=== PATIENT | female | born 1980 | race Caucasian/White ===

== ENCOUNTER 2017-01-05 13:00 | Emergency (ER) | payer OTHER ==
[2017-01-05 13:49] LABS: APPEARANCE,URINE Clear (CLEAR); COLOR,URINE Yellow (YELLOW); OCCULT BLOOD,URINE 1+ (NEGATIVE); PH URINE 6.5 (5.0 - 8.0)
[2017-01-05 13:56] LABS: BASOPHILS % 0.8 (0.0-1.5); EOSINOPHILS % 2.6 % (0.0-6.8); MEAN CORPUSCULAR HEMOGLOBIN 31.8 pg (28.0-34.0); MEAN CORPUSCULAR VOLUME 92.5 fl (80.0-100.0); MONOCYTES % 4.7 % (0.0-11.0); NEUTROPHILS # 5.8 # k/uL (1.4-7.7)
[2017-01-05 14:00] LABS: AMORPHOUS SEDIMENT,UR FEW (NEGATIVE); eGFR (African) > 60; eGFR (Non-African) > 60
[2017-01-05] MEDS ORDERED: ONDANSETRON HCL/PF 4 MG/ 2ML VIAL ONE (14:07)
[2017-01-05] MEDS: 0.9 % SODIUM CHLORIDE 1,000 ML IV SCH (14:10)
[2017-01-05] MEDS: ONDANSETRON HCL/PF 4 MG/ 2ML VIAL IVP ONE (14:10)
[2017-01-05] MEDS: HYOSCYAMINE SULFATE 0.125 MG TAB.SUBL SL ONE (14:10)
[2017-01-05] MEDS ORDERED: 0.9 % SODIUM CHLORIDE 1,000 ML IV ONE (14:34)
[2017-01-05] MEDS: KETOROLAC TROMETHAMINE 30 MG/1ML VIAL IVP ONE (15:44)
--- NOTE | 2017-01-05 15:57 | Diagnostic Imaging Report ---
[facility] [address] [facility].[address] [address] Report Submission Date: Jan 05, 2017 2:39:10 PM CDT Patient Study Name: GABBY SHEETS Date: Jan 05, 2017 1:50:54 PM CDT Modality Type: CR Gender: F Description: CHEST : 84 Institution: [facility] Physician JERED LOPEZ - ER Chest, 2 view History: FEVER Findings: The heart size is normal. The lungs are clear. There is no pleural effusion or pneumothorax identified. The osseous structures are normal. Impression: 1. No acute pulmonary disease. Electronically signed on Jan 05, 2017 2:39:10 PM CDT by: Joaquín ODELL
--- NOTE | 2017-01-05 15:58 | Diagnostic Imaging Report ---
[facility] [address] [facility] [address] [place], [place]. [address] Report Submission Date: Jan 05, 2017 2:45:44 PM CDT Patient Study Name: GABBY SHEETS Date: Jan 05, 2017 1:57:27 PM CDT Modality Type: CT\SR Gender: F Description: CT ABD & PELVIS W/O CO : 84 Institution: [facility] Physician JERED LOPEZ - ER CT abdomen and pelvis without contrast History:ABD PAIN, NAUSEA, VOMITING, DIARRHEA SINCE YESTERDAY Technique: Transaxial computed tomographic images of the abdomen and pelvis were obtained without the use of intravenous contrast according to standard protocol. FINDINGS: The lung bases are clear. The heart size is normal. The liver is normal in density. The gallbladder is absent. The pancreas spleen and adrenal glands are normal. The kidneys are symmetric in size without evidence of calculus, hydronephrosis or hydroureter. There is no bowel wall thickening or dilation present. The appendix is normal. The vascular structures normal course and caliber. There is no adenopathy present. The bladder is contracted. There is no free fluid present. There is mild degenerative changes in the lower lumbar spine. IMPRESSION: 1. Status post cholecystectomy. 2. No bowel wall thickening or dilation. Normal appendix. 3. No free fluid. Electronically signed on Jan 05, 2017 2:45:44 PM CDT by: Joaquín ODELL
[2017-01-05] MEDS: HYDROmorphone HCL/PF 1 MG/ML DISP.SYRIN IVP ONE (16:50)
--- NOTE | 2017-01-05 16:51 | ED Physician Documentation ---
Abdominal Pain - HISTORIAN Historian: patient - HPI Stated Complaint: generalized ache, emesis, diarrhea Chief Complaint: Abdominal Pain Onset: hours (4) Duration: sudden-onset Timing: still present Context: denies: out of country travel, bad food, recent trauma Severity: moderate Quality: pain, cramping Associated Symptoms: nausea, vomiting, diarrhea Exacerbated by: nothing Relieved by: nothing Further Comments: no - ROS CONST: no problems GI/: other (n/v/d) CVS/RESP: cough (sl. prod.) EYES/ENT: problems with vision MS/SKIN/LYMPH: other (general muscle aches) NEURO/PSYCH: none - SOCIAL HX Smoking History: cigarettes Alcohol Use: none Drug Use: none - FAMILY HX Family History: no significant history - PAST HX Past History: other (cancer, fibromyalgia) Surgeries/Procedures: cholecystectomy, hysterectomy Immunizations: referred to PCP Home Medications: Ambulatory Orders Medication Instructions Recorded Gabapentin 1,200 mg PO TID 03/27/13 Ergocalciferol (Vitamin D2) 1,000 unit PO DAILY 01/05/17 [Vitamin D] Furosemide [Lasix] 40 mg PO DAILY 01/05/17 Potassium Chloride [Klor-Con M20] 40 meq PO DAILY 01/05/17 oxyCODONE HCL/ACETAMINOPHEN 1 tab PO QID 01/05/17 [Percocet 5/325] Allergies/Adverse Reactions: Allergies Allergy/AdvReac Type Severity Reaction Status Date / Time No Known Allergies Allergy Verified 01/05/17 13:32 - VITAL SIGNS Vital Signs: Vital Signs Temp Pulse Resp BP Pulse Ox 37.3 F L 85 20 134/86 96 01/05/17 13:05 01/05/17 13:05 01/05/17 13:05 01/05/17 13:05 01/05/17 13:05 - REVIEWED ASSESSMENTS Nursing Assessment Reviewed: Yes Vitals Reviewed: Yes Progress - Results/Orders Results/Orders: cbc, cmp, amylase, ua, ct abdomen/pelvis, chest x-ray ordered - Progress Progress: pt. improved with ns 1 liter, 0.25 mg hyoscyamine p.o., 1 mg dilaudid ivp, 30 mg toradol ivp, 8 mg zofran ivp Critical Care Note - Critical Care Note Total Time (mins): 0 ED Results Lab/Radiology - Lab Results Lab Results: Lab Results 01/05/17 01/05/17 01/05/17 13:45 13:45 13:45 WBC 9.40 K/ul K/ul (4.00-12.00) RBC 4.33 M/ul M/ul (3.90-5.20) Hgb 13.8 g/dL g/dL (12.0-16.0) Hct 40.0 % % (34.5-46.5) MCV 92.5 fl fl (80.0-100.0) MCH 31.8 pg pg (28.0-34.0) MCHC 34.4 g/dL g/dL (30.0-36.0) RDW 12.1 % % (11.3-14.3) Plt Count 252 K/mm3 K/mm3 (130-400) Neut % (Auto) 62.0 % % (39.0-79.0) Lymph % (Auto) 29.2 % % (16.0-50.0) [place] % (Auto) 4.7 % % (0.0-11.0) Eos % (Auto) 2.6 % % (0.0-6.8) Baso % (Auto) 0.8 (0.0-1.5) Neut # 5.8 # k/uL # k/uL (1.4-7.7) Lymph # 2.7 # k/uL # k/uL (0.6-4.0) [place] # 0.4 # k/uL # k/uL (0.0-0.9) Eos # 0.2 # k/uL # k/uL (0.0-0.6) Baso # 0.1 # k/uL # k/uL (0.0-0.5) Reactive Lymphs % 0.7 % % (0.0-5.0) Reactive Lymphs # 0.1 # k/uL # k/uL (0.0-0.8) Sodium 141 mmol/L mmol/L (136-145) Potassium 4.3 mmol/L mmol/L (3.5-5.0) Chloride 109 mmol/L mmol/L (98-110) Carbon Dioxide 26 mmol/L mmol/L (20-32) BUN 9 mg/dL L mg/dL (10-26) Creatinine 0.6 mg/dL mg/dL (0.4-1.5) Estimated Creat Clear 233 Est GFR ( Amer) > 60 (60 - ) Est GFR (Non-Af Amer) > 60 (60 - ) Glucose 107 mg/dL H mg/dL (70-99) Calcium 9.8 mg/dL mg/dL (8.5-10.5) Total Bilirubin 0.8 mg/dL mg/dL (0.2-1.2) AST 21 U/L U/L (0-41) ALT 17 U/L U/L (0-45) Alkaline Phosphatase 72 U/L U/L (46-116) Total Protein 7.3 g/dL g/dL (6.0-8.5) Albumin 4.2 g/dL g/dL (3.0-5.5) Amylase 32 U/L U/L (20-104) Urine Color Yellow (YELLOW) Urine Appearance Clear (CLEAR) Urine pH 6.5 (5.0 - 8.0) Ur Specific [place] 1.025 (1.010-1.030) Urine Protein 1+ mg/dL H mg/dL (NEGATIVE) Urine Ketones Negative mg/dL mg/dL (NEGATIVE) Urine Occult Blood 1+ H (NEGATIVE) Urine Nitrite Negative (NEGATIVE) Urine Bilirubin 1+ H (NEGATIVE) Urine Urobilinogen 1.0 Eu Eu (0.2-1.0) Ur Leukocyte Esterase Negative (NEGATIVE) Urine RBC 2-5 H (0-2 HPF) Urine WBC 0-2 (0-5 HPF) Ur Squamous Epith Cells Few (NEG-FEW) Amorphous Sediment Few H (NEGATIVE) Urine Bacteria Few H (NEGATIVE) Urine Mucus Present H (NEGATIVE) Urine Glucose Negative mg/dL mg/dL (NEGATIVE) - Radiology Radiology Impressions: cxr neg, ct abdomen/pelvis unremarkable - Orders Orders: ED Orders Category Date Time Status Place IV Lock 1T Care 01/05/17 13:41 Active CHEST P.A.&LAT 2 VIEWS [RAD] Stat Exams 01/05/[address] ABD & PELVIS W/O CON Stat Exams 01/05/17 Completed AMYLASE Routine Lab 01/05/17 13:45 Completed CBC/PLATELET/DIFF Routine Lab 01/05/17 13:45 Completed CMP Routine Lab 01/05/17 13:45 Completed URINALYSIS Routine Lab 01/05/17 13:45 Completed 0.9 % Sodium Chloride [Normal Saline] 1,000 ml Med 01/05/17 14:00 Ordered IV .Q1H HYDROmorphone HCL/PF [Dilaudid] Med 01/05/17 16:23 Discontinued 1 mg IVP NOW ONE Hyoscyamine Sulfate [Oscimin Sl] Med 01/05/17 13:45 Discontinued 0.25 mg SL 1T ONE Ketorolac Tromethamine [Toradol] Med 01/05/17 14:47 Discontinued 30 mg IVP NOW ONE Ondansetron HCl/Pf [Zofran 4 mg/2 ml] Med 01/05/17 14:07 Discontinued 8 mg .ROUTE .STK-MED ONE Ondansetron HCl/Pf [Zofran 4 mg/2 ml] Med 01/05/17 14:32 Discontinued 8 mg IVP NOW ONE Abdominal Pain Physical Exam - Physical Exam General Appearance: alert, moderate distress EENT: eye inspection normal, ENT inspection normal, pharynx normal, no signs of dehydration, RODNEY, no nystagmus, TM's nml NECK: normal inspection, thyroid normal, supple RESPIRATORY: no resp distress, chest non-tender, breath sounds normal. No: wheezes, rales, rhonchi CVS: reg rate & rhythm, heart sounds normal, equal pulses, no murmur, no gallop , PMI nml, no JVD ABDOMEN: soft, normal bowel sounds, tenderness (generalized). No: rebound, guarding BACK: normal inspection, no CVA tenderness SKIN: warm/dry, normal color EXTREMITIES: non-tender, normal range of motion, no evidence of injury, no edema NEURO: oriented X3, CN's nml as tested, motor nml, sensation nml, cognition normal Vital Signs: Vital Signs Temp Pulse Resp BP Pulse Ox 37.3 F L 85 20 134/86 96 01/05/17 13:05 01/05/17 13:05 01/05/17 13:05 01/05/17 13:05 01/05/17 13:05 Discharge Clincal Impression: Gastroenteritis Referrals: Emelia Zamarripa [Primary Care Provider] - 2 Days Home Medications: Ambulatory Orders Gabapentin 1,200 mg PO TID 03/27/13 Ergocalciferol (Vitamin D2) [Vitamin D] 1,000 unit PO DAILY 01/05/17 Furosemide [Lasix] 40 mg PO DAILY 01/05/17 Potassium Chloride [Klor-Con M20] 40 meq PO DAILY 01/05/17 oxyCODONE HCL/ACETAMINOPHEN [Percocet 5/325] 1 tab PO QID 01/05/17 Comments: discharged in stable condition to family with scripts for bentyl, flagyl and zofran Condition: Stable Disposition: 01 HOME, SELF-CARE Decision to Admit: NO Decision Time: 04:50
[2017-01-05 17:36] VITALS: BP 98/65
== END 2017-01-05 17:00 | disposition home or self-care (01) ==
LOC: ED 13:00
DX: K52.9 Noninfective gastroenteritis and colitis, unspecified (principal)
CPT/HCPCS: 71020; 74176; 80053; 81002; 82150; 85025; A9270; J1170; J1885; J2405; J7030; 96361; 96374; 96375; 99283; S1016

== ENCOUNTER 2017-07-21 16:40 | Emergency (ER) | payer OTHER ==
--- NOTE | 2017-07-21 16:45 | ED Physician Documentation ---
General Adult - HISTORIAN Historian: patient - HPI Stated Complaint: headache, congestion, cough, fatigue Chief Complaint: Headache Onset: other (over a month ) Timing: worse Severity: moderate Further Comments: yes (She states she started with congestion over a month ago and in the last few days she has started to have increased congestion, shortness of air, sinus pressure, extreme fatigue and headache. She does report she has a history of migraines but she does not feel that this is "like normal" She denies any vision changes, she does although report some dizziness "not bad " she has no nausea. She denies any head trauma or fall. She has tried OTC meds with mild to no relief. She has a history of CHF "not really CHF but fluid retention" She is on lasix for that. She has had some sweats but denies any measured fever) Last known Well Code/Unknown Code: Unknown - ROS CONST: sweating, recent illness, chills. denies: fever EYES/ENT: nasal drainage, nasal congestion. denies: problems with vision CVS/RESP: shortness of breath, cough GI/: denies: problems urinating, nausea MS/SKIN/LYMPH: rash NEURO/PSYCH: headache, dizziness - PAST HX Past History: other (water retention ) Surgeries/Procedures: hysterectomy (partial ) Immunizations: referred to PCP Allergies/Adverse Reactions: Allergies Allergy/AdvReac Type Severity Reaction Status Date / Time tramadol Allergy Verified 07/21/17 17:05 Home Medications: Ambulatory Orders Medication Instructions Recorded Gabapentin 1,200 mg PO TID 03/27/13 Ergocalciferol (Vitamin D2) 1,000 unit PO DAILY 01/05/17 [Vitamin D] Furosemide [Lasix] 40 mg PO DAILY 01/05/17 Potassium Chloride [Klor-Con M20] 40 meq PO DAILY 01/05/17 oxyCODONE HCL/ACETAMINOPHEN 1 tab PO QID 01/05/17 [Percocet 5/325] Albuterol Sulfate [ProAir 2 puff INH Q6H PRN #1 inhaler 07/21/17 RespiClick] Amoxicillin/Potassium Clav 1 each PO BID #20 tablet 07/21/17 [Augmentin 875-125 Tablet] Citalopram Hydrobromide [Celexa] 30 mg PO DAILY 07/21/17 Methylprednisolone [Medrol] 4 mg PO D #1 tab.ds.pk 07/21/17 - SOCIAL HX Smoking History: cigarettes Alcohol Use: none Drug Use: none - FAMILY HX Family History: No - VITAL SIGNS Vital Signs: Vital Signs Temp Pulse Resp BP Pulse Ox 98/65 01/05/17 17:32 - REVIEWED ASSESSMENTS Nursing Assessment Reviewed: Yes Vitals Reviewed: Yes Progress - Progress Progress: 1810: States her headache is now a 2 on 1/10 scale. Denies nausea. She states "she is feeling much better" - results so far discussed WBC normal and chest xray normal DG 1830: plan of home care discussed she is feeling better and is agreeable to going home after she is finished with her IV fluids DG ED Results Lab/Radiology - Radiology Radiology Impressions: Examination: PA and lateral chest. History: Evaluate lung arora. Comparison exam: 05 January 2017 Findings: PA lateral chest demonstrate a normal cardiac and mediastinal silhouette. No focal infiltrate. No blunting of the costophrenic margins. Scattered granuloma. Osseous structures are appropriate for age. Impression: No acute pulmonary process. Electronically signed on Jul 21, 2017 5:24:35 PM BACKSHOE PERSON by: Frandy Wright General Adult Physical Exam - PHYSICAL EXAM GENERAL APPEARANCE: mild distress EENT: RODNEY, TM's nml RESPIRATORY: chest non-tender, wheezes CVS: reg rate & rhythm, heart sounds normal, equal pulses, no murmur ABDOMEN: soft, normal bowel sounds, no distension, non-tender BACK: normal inspection SKIN: warm/dry, normal color EXTREMITIES: non-tender, normal range of motion, no evidence of injury, no edema NEURO: oriented X3, CN's nml as tested, motor nml, sensation nml Discharge Clincal Impression: Sinusitis Qualifiers: Sinusitis location: frontal Chronicity: acute Recurrence: not specified as recurrent Qualified Code(s): J01.10 - Acute frontal sinusitis, unspecified Prescriptions: Albuterol Sulfate [ProAir RespiClick] 2 puff INH Q6H PRN #1 inhaler PRN Reason: Cough Amoxicillin/Potassium Clav [Augmentin 875-125 Tablet] 1 each PO BID #20 tablet Methylprednisolone [Medrol] 4 mg PO D #1 tab.ds.pk Referrals: Emelia Zamarripa [Primary Care Provider] - 2 Days Comments: Take meds as prescribed Follow up with PCP in one week Return to ER for increase in symptoms or concerns increased fluids rest Condition: Stable Disposition: 01 HOME, SELF-CARE Decision to Admit: NO Date of Decison to Admit: 07/21/17 Decision Time: 18:30
[2017-07-21] MEDS ORDERED: IPRATROPIUM/ALBUTEROL SULFATE 3 ML AMPUL.NEB NEB ONE (17:04)
[2017-07-21] MEDS ORDERED: DEXAMETHASONE SOD PHOS 4 MG/ML VIAL IVP ONE (17:05)
[2017-07-21] MEDS ORDERED: KETOROLAC TROMETHAMINE 30 MG/1ML VIAL IVP ONE (17:05)
[2017-07-21] MEDS ORDERED: 0.9 % SODIUM CHLORIDE 1,000 ML IV ONE (17:06)
[2017-07-21] MEDS ORDERED: ONDANSETRON HCL/PF 4 MG/ 2ML VIAL IVP ONE (17:36)
[2017-07-21 17:44] LABS: BASOPHILS % 0.9 (0.0-1.5); MEAN CORPUSCULAR HEMOGLOBIN 31.1 pg (28.0-34.0); MEAN CORPUSCULAR VOLUME 90.2 fl (80.0-100.0); MONOCYTES % 2.9 % (0.0-11.0); NEUTROPHILS # 7.4 # k/uL (1.4-7.7)
[2017-07-21 17:58] LABS: eGFR (African) > 60; eGFR (Non-African) > 60
--- NOTE | 2017-07-21 18:06 | Diagnostic Imaging Report ---
IVAN R[facility] [address] [facility] [address] [place], [place]. [address] Report Submission Date: Jul 21, 2017 5:24:35 PM ADOPTION AGENT Patient Study Name: GABBY SHEETS Date: Jul 21, 2017 5:09:22 PM ADOPTION AGENT Modality Type: CR Gender: F Description: CHEST : 84 Institution: [facility] Physician: IVAN RICH Examination: PA and lateral chest. History: Evaluate lung arora. Comparison exam: 05 January 2017 Findings: PA lateral chest demonstrate a normal cardiac and mediastinal silhouette. No focal infiltrate. No blunting of the costophrenic margins. Scattered granuloma. Osseous structures are appropriate for age. Impression: No acute pulmonary process. Electronically signed on Jul 21, 2017 5:24:35 PM ADOPTION AGENT by: Frandy ODELL
[2017-07-21 21:48] VITALS: BP 129/79
== END 2017-07-21 19:23 | disposition home or self-care (01) ==
LOC: ED 16:40
DX: J01.10 Acute frontal sinusitis, unspecified (principal)
CPT/HCPCS: 71020; 80053; 83880; 85025; J1100; J1885; J2405; J7030; 96361; 96374; 96375; 99283; S1016

== ENCOUNTER 2017-08-29 16:50 | Emergency (ER) | payer OTHER ==
[2017-08-29 18:37] LABS: BASOPHILS % 1.2 (0.0-1.5); EOSINOPHILS % 2.7 % (0.0-6.8); MEAN CORPUSCULAR HEMOGLOBIN 31.7 pg (28.0-34.0); MEAN CORPUSCULAR VOLUME 95.5 fl (80.0-100.0); MONOCYTES % 8.2 % (0.0-11.0); NEUTROPHILS # 2.6 # k/uL (1.4-7.7)
--- NOTE | 2017-08-29 18:42 | ED Physician Documentation ---
Upper Respiratory Symptoms - HISTORIAN Historian: patient - HPI Stated Complaint: ear ache cough Chief Complaint: Earache Onset: days ago (4) Duration: constant Context: denies: recent foreign travel Severity: mild Associated Symptoms: fever, chills, sweating, earache, runny nose, sinus pain, productive cough Worsened by Deep Breath: No Further Comments: yes (She states 4 days ago she started with ear pain and fever. She reports she has a cough and headache with ear pain and fatigue. She has tried OTC meds) - ROS CONST/EYES: denies: weakness CVS/RESP: denies: shortness of breath LYMPH: denies: rash GI/: denies: vomiting, nausea, diarrhea NEURO/PSYCH: denies: fainting, dizziness, confusion MS/SKIN: denies: muscle aches, rash - PAST HX Lung Disease: none PE Risk Factors: none Surgeries/Procedures: none Immunizations: referred to PCP Allergies/Adverse Reactions: Allergies Allergy/AdvReac Type Severity Reaction Status Date / Time cyclobenzaprine HCl Allergy Verified 08/29/17 18:44 [From Flexeril] tramadol Allergy Verified 08/29/17 18:44 Home Medications: Ambulatory Orders Medication Instructions Recorded Gabapentin 1,200 mg PO TID 03/27/13 Ergocalciferol (Vitamin D2) 1,000 unit PO DAILY 01/05/17 [Vitamin D] Furosemide [Lasix] 40 mg PO DAILY 01/05/17 Potassium Chloride [Klor-Con M20] 40 meq PO DAILY 01/05/17 oxyCODONE HCL/ACETAMINOPHEN 1 tab PO QID 01/05/17 [Percocet 5/325] Albuterol Sulfate [ProAir 2 puff INH Q6H PRN #1 inhaler 07/21/17 RespiClick] Amoxicillin/Potassium Clav 1 each PO BID #20 tablet 07/21/17 [Augmentin 875-125 Tablet] Citalopram Hydrobromide [Celexa] 30 mg PO DAILY 07/21/17 Methylprednisolone [Medrol] 4 mg PO D #1 tab.ds.pk 07/21/17 - SOCIAL HX Smoking History: cigarettes Alcohol Use: none Drug Use: none - FAMILY HX Family History: none - VITAL SIGNS Vital Signs: Vital Signs Temp Pulse Resp BP Pulse Ox 98.1 F 81 20 134/83 100 08/29/17 16:51 08/29/17 16:51 08/29/17 16:51 08/29/17 16:51 08/29/17 16:51 - REVIEWED ASSESSMENTS Nursing Assessment Reviewed: Yes Vitals Reviewed: Yes ED Results Lab/Radiology - Lab Results Lab Results: Lab Results 08/29/17 08/29/17 18:30 18:30 WBC 5.10 K/ul K/ul (4.00-12.00) RBC 4.24 M/ul M/ul (3.90-5.20) Hgb 13.4 g/dL g/dL (12.0-16.0) Hct 40.5 % % (34.5-46.5) MCV 95.5 fl fl (80.0-100.0) MCH 31.7 pg pg (28.0-34.0) MCHC 33.2 g/dL g/dL (30.0-36.0) RDW 12.6 % % (11.3-14.3) Plt Count 268 K/mm3 K/mm3 (130-400) Neut % (Auto) 50.7 % % (39.0-79.0) Lymph % (Auto) 35.4 % % (16.0-50.0) [place] % (Auto) 8.2 % % (0.0-11.0) Eos % (Auto) 2.7 % % (0.0-6.8) Baso % (Auto) 1.2 (0.0-1.5) Neut # (Auto) 2.6 # k/uL # k/uL (1.4-7.7) Lymph # (Auto) 1.8 # k/uL # k/uL (0.6-4.0) [place] # (Auto) 0.4 # k/uL # k/uL (0.0-0.9) Eos # (Auto) 0.1 # k/uL # k/uL (0.0-0.6) Baso # (Auto) 0.1 # k/uL # k/uL (0.0-0.5) Reactive Lymphs % 1.7 % % (0.0-5.0) Reactive Lymphs # 0.1 # k/uL # k/uL (0.0-0.8) Sodium 138 mmol/L mmol/L (136-145) Potassium 3.7 mmol/L mmol/L (3.5-5.1) Chloride 104 mmol/L mmol/L (98-107) Carbon Dioxide 26 mmol/L mmol/L (22-30) BUN 8 mg/dL mg/dL (7-17) Creatinine 0.60 mg/dL mg/dL (0.52-1.04) Estimated Creat Clear 219 Est GFR ( Amer) > 60 (60 - ) Est GFR (Non-Af Amer) > 60 (60 - ) Glucose 77 mg/dL mg/dL (74-106) Calcium 8.8 mg/dL mg/dL (8.4-10.2) Total Bilirubin 0.6 mg/dL mg/dL (0.2-1.3) AST 22 U/L U/L (15-46) ALT 25 U/L U/L (13-69) Alkaline Phosphatase 65 U/L U/L (38-126) Total Protein 7.1 g/dL g/dL (6.3-8.2) Albumin 4.0 g/dL g/dL (3.5-5.0) - Radiology Radiology Impressions: PA and lateral chest CLINICAL HISTORY: Cough and fever for 3 days. FINDINGS: Examination the chest in PA and lateral views with comparison to examination of 07/21/2017 demonstrates the lungs to be clear. Cardiovascular and mediastinal silhouettes are stable. The bony thorax is intact. IMPRESSION: Negative chest. Electronically signed on Aug 29, 2017 7:01:39 PM CRITICAL CARE TECHNICIAN by: Alcon Pacheco - Orders Orders: ED Orders Category Date Time Status Place IV Lock 1T Care 08/29/17 18:10 Active CHEST 2 VIEW [CHEST P.A.&LAT 2 VIEWS] [RAD] Stat Exams 08/29/17 17:52 Taken CBC/PLATELET/DIFF Stat Lab 08/29/17 18:30 Completed CMP Stat Lab 08/29/17 18:30 Completed Upper Respiratory Symptoms - EXAM General Appearance: no acute distress EENT: eyes nml inspection, TM erythema (right ear ), pharynx nml, other (sinus tenderness frontal ) Respiratory: no resp. distress, breath sounds nml, wheezes (expiratory ) Abdomen: non-tender, nml bowel sounds CVS: reg rate & rhythm, heart sounds normal, equal pulses, no murmur Skin: color nml, no rash Extremities: non-tender, no edema Neuro/Psych: oriented x3, neuro intact, mood/affect nml Discharge Clincal Impression: Otitis Qualifiers: Laterality: right Qualified Code(s): H66.91 - Otitis media, unspecified, right ear Referrals: Emelia Zamarripa [Primary Care Provider] - 2 Days Comments: 1. Zpack as directed 2 ciprodex 3 drops in right ear three times per day x 5 days 3. Increase fluids 4. OTC meds for pain or headache 5. Return to ER for increasing symptoms 6. See PCP in 2-4 days Condition: Stable Disposition: 01 HOME, SELF-CARE Decision to Admit: NO Date of Decison to Admit: 08/29/17 Decision Time: 19:09
[2017-08-29 18:53] LABS: eGFR (African) > 60; eGFR (Non-African) > 60
[2017-08-29 19:50] VITALS: BP 124/86
--- NOTE | 2017-08-29 22:39 | Diagnostic Imaging Report ---
IVAN R[facility] [address] [facility] [place], [place]. [address] Report Submission Date: Aug 29, 2017 7:01:39 PM MANAGER OF SOFTWARE DEVELOPMENT Patient Study Name: GABBY SHEETS Date: Aug 29, 2017 6:29:27 PM MANAGER OF SOFTWARE DEVELOPMENT Modality Type: CR Gender: F Description: CHEST : 84 Institution: [facility] Physician: IVAN RICH PA and lateral chest CLINICAL HISTORY: Cough and fever for 3 days. FINDINGS: Examination the chest in PA and lateral views with comparison to examination of 07/21/2017 demonstrates the lungs to be clear. Cardiovascular and mediastinal silhouettes are stable. The bony thorax is intact. IMPRESSION: Negative chest. Electronically signed on Aug 29, 2017 7:01:39 PM MANAGER OF SOFTWARE DEVELOPMENT by: Alcon ODELL
== END 2017-08-29 19:25 | disposition home or self-care (01) ==
LOC: ED 16:50
DX: H66.91 Otitis media, unspecified, right ear (principal); R05 Cough
CPT/HCPCS: 71020; 71046; 80053; 85025; 99283; S1016

== ENCOUNTER 2017-10-11 14:30 | Emergency (ER) | payer OTHER ==
[2017-10-11 14:47] VITALS: BP 117/85
[2017-10-11] MEDS: ALBUTEROL SULFATE 2.5 MG/3 ML AMPUL.NEB NEB ONE (14:50)
[2017-10-11 15:19] LABS: BASOPHILS % 0.7 (0.0-1.5); EOSINOPHILS % 2.1 % (0.0-6.8); MEAN CORPUSCULAR HEMOGLOBIN 31.5 pg (28.0-34.0); MONOCYTES % 8.4 % (0.0-11.0); NEUTROPHILS # 3.6 # k/uL (1.4-7.7)
[2017-10-11 15:32] LABS: eGFR (African) > 60; eGFR (Non-African) > 60
[2017-10-11] MEDS: cefTRIAXone SODIUM 1 GM VIAL ONE (15:49)
--- NOTE | 2017-10-11 15:50 | ED Physician Documentation ---
General Adult - HPI Stated Complaint: Body and Ear aches Chief Complaint: General Adult Further Comments: yes (36 year old female patient presents with right ear ache, cough, fatigue and nausea after drinking a bottle of pepto bismol. Patient states symptoms started 3 days ago. states she can't smoke due to coughing) - ROS CONST: fever, chills. denies: recent illness, weight loss EYES/ENT: sore throat, nasal drainage CVS/RESP: cough, other (wheezing). denies: chest pain, shortness of breath GI/: none MS/SKIN/LYMPH: none NEURO/PSYCH: denies: headache - PAST HX Past History: COPD, other (fibromyalgia; cervical ca, COPD) Allergies/Adverse Reactions: Allergies Allergy/AdvReac Type Severity Reaction Status Date / Time cyclobenzaprine HCl Allergy Verified 10/11/17 14:47 [From Flexeril] tramadol Allergy Verified 10/11/17 14:47 Home Medications: Ambulatory Orders Medication Instructions Recorded Gabapentin 1,200 mg PO TID 03/27/13 Ergocalciferol (Vitamin D2) 1,000 unit PO DAILY 01/05/17 [Vitamin D] Potassium Chloride [Klor-Con M20] 40 meq PO DAILY 01/05/17 oxyCODONE HCL/ACETAMINOPHEN 1 tab PO QID 01/05/17 [Percocet 5/325] Albuterol Sulfate [Ventolin HFN] 2.5 mg NEB Q4 PRN #25 vial 10/11/17 Beclomethasone Dipropionate [Qvar] 1 puff IH BID #1 aer.w.adap 10/11/17 Cefdinir [Omnicef] 300 mg PO BID #20 capsule 10/11/17 - SOCIAL HX Smoking History: cigarettes - FAMILY HX Family History: No - VITAL SIGNS Vital Signs: Vital Signs Temp Pulse Resp BP Pulse Ox 96.1 F L 101 H 17 117/85 100 10/11/17 14:35 10/11/17 14:35 10/11/17 14:35 10/11/17 14:35 10/11/17 14:35 - REVIEWED ASSESSMENTS Nursing Assessment Reviewed: Yes Vitals Reviewed: Yes Progress - Progress Progress: wheezing resolved after neb treatment. Review previous ER visit. OM treated with azithromycin. Will give rocephin and Er and place on 10 day course of omnicef. ED Results Lab/Radiology - Lab Results Lab Results: Lab Results 10/11/17 10/11/17 15:10 15:10 WBC 6.60 K/ul K/ul (4.00-12.00) RBC 4.58 M/ul M/ul (3.90-5.20) Hgb 14.4 g/dL g/dL (12.0-16.0) Hct 42.6 % % (34.5-46.5) MCV 93.0 fl fl (80.0-100.0) MCH 31.5 pg pg (28.0-34.0) MCHC 33.8 g/dL g/dL (30.0-36.0) RDW 12.1 % % (11.3-14.3) Plt Count 302 K/mm3 K/mm3 (130-400) Neut % (Auto) 54.9 % % (39.0-79.0) Lymph % (Auto) 31.7 % % (16.0-50.0) [place] % (Auto) 8.4 % % (0.0-11.0) Eos % (Auto) 2.1 % % (0.0-6.8) Baso % (Auto) 0.7 (0.0-1.5) Neut # (Auto) 3.6 # k/uL # k/uL (1.4-7.7) Lymph # (Auto) 2.1 # k/uL # k/uL (0.6-4.0) [place] # (Auto) 0.6 # k/uL # k/uL (0.0-0.9) Eos # (Auto) 0.1 # k/uL # k/uL (0.0-0.6) Baso # (Auto) 0.0 # k/uL # k/uL (0.0-0.5) Reactive Lymphs % 2.1 % % (0.0-5.0) Reactive Lymphs # 0.1 # k/uL # k/uL (0.0-0.8) Sodium 141 mmol/L mmol/L (136-145) Potassium 3.9 mmol/L mmol/L (3.5-5.1) Chloride 107 mmol/L mmol/L (98-107) Carbon Dioxide 21 mmol/L L mmol/L (22-30) BUN 11 mg/dL mg/dL (7-17) Creatinine 0.60 mg/dL mg/dL (0.52-1.04) Estimated Creat Clear 262 Est GFR ( Amer) > 60 (60 - ) Est GFR (Non-Af Amer) > 60 (60 - ) Glucose 101 mg/dL mg/dL (74-106) Calcium 8.9 mg/dL mg/dL (8.4-10.2) Total Bilirubin 0.8 mg/dL mg/dL (0.2-1.3) AST 34 U/L U/L (15-46) ALT 28 U/L U/L (13-69) Alkaline Phosphatase 70 U/L U/L (38-126) Total Protein 7.7 g/dL g/dL (6.3-8.2) Albumin 4.1 g/dL g/dL (3.5-5.0) - Orders Orders: ED Orders Category Date Time Status Place IV Lock 1T Care 10/11/17 15:07 Active CBC/PLATELET/DIFF Stat Lab 10/11/17 15:10 Completed CMP Stat Lab 10/11/17 15:10 Completed INFLUENZA A&B Stat Lab 10/11/17 14:44 Ordered Albuterol Sulfate [Ventolin] Med 10/11/17 14:44 Discontinued 2.5 mg NEB NOW ONE Lidocaine 1% 5ml(IM or SUTURE) [Xylocaine] Med 10/11/17 15:44 Discontinued 50 mg IJ NOW ONE cefTRIAXone SODIUM [Rocephin] Med 10/11/17 15:45 Ordered 1,000 mg IM QD methylPREDNISolone ACETATE [Depo-Medrol] Med 10/11/17 15:44 Discontinued 80 mg IM NOW ONE General Adult Physical Exam - PHYSICAL EXAM GENERAL APPEARANCE: mild distress EENT: eye inspection normal, ENT inspection normal, pharynx normal, no signs of dehydration, RODNEY, no nystagmus, abnormal TM (right with erythema and bulging) RESPIRATORY: no resp distress, chest non-tender, wheezes (expiratory) CVS: reg rate & rhythm, heart sounds normal, equal pulses, no murmur, no gallop , PMI nml, no JVD, no friction rub, 24 ABDOMEN: soft, no organomegaly, normal bowel sounds, no abdominal bruit, no distension SKIN: normal color, warm/dry, NR, INT, PAL, DR EXTREMITIES: non-tender, normal range of motion, no evidence of injury, no edema , J, INFORMATION TECHNOLOGY ASSISTANT NEURO: oriented X3, CN's nml as tested, motor nml, sensation nml, mood/affect nml Discharge Clincal Impression: COPD exacerbation Otitis media Qualifiers: Otitis media type: suppurative Chronicity: acute Laterality: right Recurrence: recurrent Spontaneous tympanic membrane rupture: without spontaneous rupture Qualified Code(s): H66.004 - Acute suppurative otitis media without spontaneous rupture of ear drum, recurrent, right ear Prescriptions: Albuterol Sulfate [Ventolin HFN] 2.5 mg NEB Q4 PRN #25 vial PRN Reason: Wheezing Beclomethasone Dipropionate [Qvar] 1 puff IH BID #1 aer.w.adap Cefdinir [Omnicef] 300 mg PO BID #20 capsule Referrals: Emelia Zamarripa [Primary Care Provider] - 2 Days Additional Instructions: Pick your medications and start them today Tylenol or ibuprofen as needed for pain Follow up with PCP after completing medication for re-evaluation. Condition: Stable Disposition: 01 HOME, SELF-CARE Decision to Admit: NO Decision Time: 15:47
[2017-10-11] MEDS: methylPREDNISolone ACETATE 80 MG/ML VIAL IM ONE (15:55)
[2017-10-11] MEDS: Lidocaine 1% 5ml(IM or SUTURE)(PAIN CLINIC) IJ ONE (15:55)
== END 2017-10-11 15:57 | disposition home or self-care (01) ==
LOC: ED 14:30
DX: J44.1 Chronic obstructive pulmonary disease with (acute) exacerbation (principal); H66.004 Acute suppurative otitis media without spontaneous rupture of ear drum, recurrent, right ear
CPT/HCPCS: 80053; 85025; J0696; J1040; S1016

== ENCOUNTER 2018-03-25 19:43 | Emergency (ER) | payer OTHER ==
[2018-03-25 20:27] LABS: BASOPHILS % 0.6 (0.0-1.5); EOSINOPHILS % 1.1 % (0.0-6.8); MEAN CORPUSCULAR HEMOGLOBIN 30.8 pg (28.0-34.0); MEAN CORPUSCULAR VOLUME 90.1 fl (80.0-100.0); MONOCYTES % 4.3 % (0.0-11.0); NEUTROPHILS # 6.4 # k/uL (1.4-7.7)
[2018-03-25 20:41] LABS: eGFR (Non-African) > 60
[2018-03-25] MEDS: PROMETHAZINE HCL 25 MG/ML VIAL IM ONE (20:49)
--- NOTE | 2018-03-25 20:49 | ED Physician Documentation ---
Nausea/Vomiting/Diarrhea - HISTORIAN Historian: patient - HPI Stated Complaint: "I have been vomiting and had diarrhea since monday". Chief Complaint: Nausea,Vomiting,Diarrhea Further Comments: yes (37 year old female patient presents with complaint of vomiting and diarrhea since Monday. State she needs a work note for missing school.) - Associated Symptoms Vomiting: frequent. denies: bloody Diarrhea: mild Abdominal Pain: none - ROS CONST: none CVS/RESP: denies: chest pain, shortness of breath, cough, dry cough, non- productive cough, productive cough GI/: denies: constipation, black stools, bloody urine, bloody stools, dark urine, problems urinating EYES/ENT: none MS/SKIN/LYMPH: denies: joint pain, leg swelling, rash, swollen glands, ankle swelling, other NEURO/PSYCH: headache. denies: fainting, anxiety, depression - PAST HX Past History: none Allergies/Adverse Reactions: Allergies Allergy/AdvReac Type Severity Reaction Status Date / Time tramadol Allergy Verified 03/25/18 20:19 Home Medications: Ambulatory Orders Medication Instructions Recorded Gabapentin 1,200 mg PO TID 03/27/13 Ergocalciferol (Vitamin D2) 1,000 unit PO DAILY 01/05/17 [Vitamin D] Potassium Chloride [Klor-Con M20] 40 meq PO DAILY 01/05/17 oxyCODONE HCL/ACETAMINOPHEN 1 tab PO QID 01/05/17 [Percocet 5/325] Albuterol Sulfate [Ventolin HFN] 2.5 mg NEB Q4 PRN #25 vial 10/11/17 Beclomethasone Dipropionate [Qvar] 1 puff IH BID #1 aer.w.adap 10/11/17 Promethazine HCl [Phenergan] 25 mg PO Q8H PRN #30 tablet 03/25/18 - SOCIAL HX Smoking History: cigarettes - FAMILY HX Family History: denies: none - VITAL SIGNS Vital Signs: Vital Signs Temp Pulse Resp BP Pulse Ox 98.5 F 76 18 113/61 96 03/25/18 20:58 03/25/18 20:58 03/25/18 20:58 03/25/18 20:58 03/25/18 20:58 - REVIEWED ASSESSMENTS Nursing Assessment Reviewed: Yes Vitals Reviewed: Yes Progress - Progress Progress: Medicated for nausea while in ER; no vomiting or diarrhea during stay. Reviewed Lab results with patient, reviewed discharge instructions; verbalized understanding. Requested work note from Monday. Note for off November return 03/27/18 ED Results Lab/Radiology - Lab Results Lab Results: Lab Results 03/25/18 03/25/18 20:23 20:23 WBC 9.50 K/ul K/ul (4.00-12.00) RBC 4.69 M/ul M/ul (3.90-5.20) Hgb 14.5 g/dL g/dL (12.0-16.0) Hct 42.3 % % (34.5-46.5) MCV 90.1 fl fl (80.0-100.0) MCH 30.8 pg pg (28.0-34.0) MCHC 34.2 g/dL g/dL (30.0-36.0) RDW 12.4 % % (11.3-14.3) Plt Count 315 K/mm3 K/mm3 (130-400) Neut % (Auto) 67.6 % % (39.0-79.0) Lymph % (Auto) 25.2 % % (16.0-50.0) [place] % (Auto) 4.3 % % (0.0-11.0) Eos % (Auto) 1.1 % % (0.0-6.8) Baso % (Auto) 0.6 (0.0-1.5) Neut # (Auto) 6.4 # k/uL # k/uL (1.4-7.7) Lymph # (Auto) 2.4 # k/uL # k/uL (0.6-4.0) [place] # (Auto) 0.4 # k/uL # k/uL (0.0-0.9) Eos # (Auto) 0.1 # k/uL # k/uL (0.0-0.6) Baso # (Auto) 0.0 # k/uL # k/uL (0.0-0.5) Reactive Lymphs % 1.2 % % (0.0-5.0) Reactive Lymphs # 0.1 # k/uL # k/uL (0.0-0.8) Sodium 135 mmol/L L mmol/L (136-145) Potassium 3.6 mmol/L mmol/L (3.5-5.1) Chloride 106 mmol/L mmol/L (98-107) Carbon Dioxide 23 mmol/L mmol/L (22-30) BUN 9 mg/dL mg/dL (7-17) Creatinine 0.60 mg/dL mg/dL (0.52-1.04) Estimated Creat Clear 211 Est GFR ( Amer) > 60 (60 - ) Est GFR (Non-Af Amer) > 60 (60 - ) Glucose 97 mg/dL mg/dL (74-106) Calcium 8.9 mg/dL mg/dL (8.4-10.2) Total Bilirubin 0.5 mg/dL mg/dL (0.2-1.3) AST 23 U/L U/L (15-46) ALT 21 U/L U/L (13-69) Alkaline Phosphatase 73 U/L U/L (38-126) Total Protein 8.1 g/dL g/dL (6.3-8.2) Albumin 4.4 g/dL g/dL (3.5-5.0) - Orders Orders: ED Orders Category Date Time Status CBC/PLATELET/DIFF Stat Lab 03/25/18 20:23 Completed CMP Stat Lab 03/25/18 20:23 Completed UA W/MICRO IF INDICATED Stat Lab 03/25/18 20:02 Ordered Promethazine HCl [Phenergan] Med 03/25/18 20:36 Discontinued 25 mg IM NOW ONE Nausea Physical Exam - EXAM General Appearance: mild distress EENT: eye inspection normal, RODNEY Respiratory: no resp distress, chest non-tender, breath sounds normal CVS: reg rate & rhythm, heart sounds normal, equal pulses, no murmur, no gallop, PMI nml, no JVD, no friction rub, 24 Abdomen: non-tender, no organomegaly Skin: normal color, warm/dry, NR, INT, PAL, DR Extremities: non-tender, normal range of motion, no evidence of injury, no edema, J, CABLE SPLICING TECHNICIAN Neuro/Psych: oriented X3, CN's nml as tested, motor nml, sensation nml, mood/affect nml Discharge Clincal Impression: Gastroenteritis Prescriptions: Promethazine HCl [Phenergan] 25 mg PO Q8H PRN #30 tablet PRN Reason: Nausea / Vomiting Referrals: Emelia Zamarripa [Primary Care Provider] - 2 Days Additional Instructions: Diet: Clear liquids Sprite/7-up Juices apple, white grape Gatorade/Powerade Jello Popsicles When tolerating clear liquids, advance to bland/brat diet - such as crackers, rice, Bananas, apples/applesauce or toast Return to the emergency department or call your doctor, if you are having severe abdominal pain, fever >101.0, or if there is blood in the vomit or diarrhea, or you cannot keep down liquids or solid food. Fever: Use Tylenol or Ibuprofen as needed per package directions Tylenol 500mg po q4h prn pain Ibuprofen 800mg po TID prn pain - do not take for more than 4 days. Condition: Stable Disposition: 01 HOME, SELF-CARE Decision to Admit: NO Decision Time: 20:49
[2018-03-25 21:00] VITALS: BP 113/61
[2018-03-26 08:30] LABS: OCCULT BLOOD,URINE 2+ (NEGATIVE)
== END 2018-03-25 21:00 | disposition home or self-care (01) ==
LOC: ED 19:43
DX: K52.9 Noninfective gastroenteritis and colitis, unspecified (principal)
CPT/HCPCS: 80053; 81002; 85025; J2550; 96372; 99283

== ENCOUNTER 2018-10-08 18:23 | Emergency (ER) | payer OTHER ==
--- NOTE | 2018-10-08 18:32 | ED Physician Documentation ---
General Adult - HISTORIAN Historian: patient - HPI Stated Complaint: right wrist carpel tunnel surgery incision-suture removal Chief Complaint: General Adult Further Comments: yes (states her surgery was 09.21.18 and she has not had a time that would work with her schd to take sutures out and now they are painful so her surgeon told her to come to the ER for removal. She has no fever or drainage) - ROS CONST: no problems MS/SKIN/LYMPH: other (swelling with suture line ) - PAST HX Past History: COPD Surgeries/Procedures: other (recent carpal tunnel ) Allergies/Adverse Reactions: Allergies Allergy/AdvReac Type Severity Reaction Status Date / Time naproxen Allergy Verified 10/08/18 19:36 tramadol Allergy Verified 10/08/18 19:36 Home Medications: Ambulatory Orders Medication Instructions Recorded Gabapentin 1,200 mg PO TID 03/27/13 Ergocalciferol (Vitamin D2) 1,000 unit PO DAILY 01/05/17 [Vitamin D] Potassium Chloride [Klor-Con M20] 40 meq PO DAILY 01/05/17 oxyCODONE HCL/ACETAMINOPHEN 1 tab PO QID 01/05/17 [Percocet 5/325] Albuterol Sulfate [Ventolin HFN] 2.5 mg NEB Q4 PRN #25 vial 10/11/17 Beclomethasone Dipropionate [Qvar] 1 puff IH BID #1 aer.w.adap 10/11/17 - SOCIAL HX Smoking History: cigarettes Alcohol Use: none Drug Use: none - FAMILY HX Family History: No - VITAL SIGNS Vital Signs: Vital Signs Temp Pulse Resp BP Pulse Ox 113/61 03/25/18 20:58 - REVIEWED ASSESSMENTS Nursing Assessment Reviewed: Yes Vitals Reviewed: Yes General Adult Physical Exam - PHYSICAL EXAM GENERAL APPEARANCE: no distress EENT: eye inspection normal NECK: normal inspection RESPIRATORY: no resp distress, chest non-tender, breath sounds normal CVS: reg rate & rhythm, heart sounds normal BACK: normal inspection SKIN: warm/dry, other (right wrist with sutures swelling from suture area. small amount of yellow drainge noted post suture removal ) EXTREMITIES: non-tender NEURO: oriented X3 Discharge Clincal Impression: Encounter for removal of sutures Referrals: Emelia Zamarripa [Primary Care Provider] - 2 Days Comments: 1. Keep area clean and dry 2. Notify surgeon and keep follow up 3. Return to ER for any concerns 4. Bactrim DS take 1 by mouth twice per day x 10 day Condition: Stable Disposition: 01 HOME, SELF-CARE Decision to Admit: NO Date of Decison to Admit: 10/08/18 Decision Time: 19:12
[2018-10-08 19:45] VITALS: BP 132/78
== END 2018-10-08 19:47 | disposition home or self-care (01) ==
LOC: ED 18:23
DX: Z48.02 Encounter for removal of sutures (principal)
CPT/HCPCS: 99281

== ENCOUNTER 2019-03-30 07:37 | Emergency (ER) | payer OTHER ==
--- NOTE | 2019-03-30 08:10 | ED Physician Documentation ---
General Adult - HISTORIAN Historian: patient - HPI Stated Complaint: nausea Chief Complaint: General Adult Onset: hours Timing: still present Severity: moderate Further Comments: yes (Pt is a 38 yo female with sob, wheezing. Pt has hx COPD and depression. She has been out of QVAR and her depression meds for 2 weeks. Pt has had a cough. Pt needs med refills.) - ROS CONST: no problems EYES/ENT: sore throat CVS/RESP: shortness of breath, cough GI/: none MS/SKIN/LYMPH: none - PAST HX Past History: COPD, other (depression) Allergies/Adverse Reactions: Allergies Allergy/AdvReac Type Severity Reaction Status Date / Time naproxen Allergy Verified 10/08/18 19:36 tramadol Allergy Verified 10/08/18 19:36 Home Medications: Ambulatory Orders Medication Instructions Recorded Gabapentin 1,200 mg PO TID 03/27/13 Ergocalciferol (Vitamin D2) 1,000 unit PO DAILY 01/05/17 [Vitamin D] Potassium Chloride [Klor-Con M20] 40 meq PO DAILY 01/05/17 oxyCODONE HCL/ACETAMINOPHEN 1 tab PO QID 01/05/17 [Percocet 5/325] Beclomethasone Dipropionate [Qvar 2 puff INH BID 03/30/19 Redihaler] Citalopram Hydrobromide [Celexa] 20 mg PO BID 03/30/19 Furosemide [Lasix] 40 mg PO BID 03/30/19 - SOCIAL HX Smoking History: cigarettes - FAMILY HX Family History: No - VITAL SIGNS Vital Signs: Vital Signs Temp Pulse Resp BP Pulse Ox 97.8 F 84 19 130/90 99 03/30/19 07:47 03/30/19 07:47 03/30/19 07:47 03/30/19 07:47 03/30/19 07:47 - REVIEWED ASSESSMENTS Nursing Assessment Reviewed: Yes Vitals Reviewed: Yes Progress - Progress Progress: Duoneb HFN x 1 in ER, improved. CXR no acute process Rx Prednisone 50 mg. Take one by mouth once daily for 5 days. Rx Albuterol (90 mcg/spray). Two puffs every 4 to 6 hours as needed for wheezing. Refill QVAR (10.6 gm) Redihaler. Take 2 puffs twice daily. Gabapentin 300 mg. Take 4 capsules by mouth every 8 hours. Lasix 40 mg. Take one every 12 hours. Celexa 20 mg. Take one by mouth twice daily. General Adult Physical Exam - PHYSICAL EXAM GENERAL APPEARANCE: moderate distress EENT: ENT inspection normal, pharynx normal NECK: normal inspection, supple RESPIRATORY: wheezes, rhonchi CVS: reg rate & rhythm, heart sounds normal ABDOMEN: soft, no organomegaly, normal bowel sounds BACK: normal inspection, no CVA tenderness SKIN: warm/dry, normal color EXTREMITIES: non-tender, normal range of motion, no evidence of injury NEURO: oriented X3, motor nml, sensation nml Discharge Clincal Impression: COPD, out of meds Referrals: Emelia Zamarripa [Primary Care Provider] - Condition: Stable Disposition: 01 HOME, SELF-CARE Decision to Admit: NO Decision Time: 09:28
[2019-03-30] MEDS: IPRATROPIUM/ALBUTEROL SULFATE 3 ML AMPUL.NEB NEB ONE (08:39)
[2019-03-30 08:40] LABS: BASOPHILS % 0.5 % (0.0-1.5); NEUTROPHILS # 4.7 # k/uL (1.4-7.7)
--- NOTE | 2019-03-30 08:45 | Diagnostic Imaging Report ---
TIFFANY DAVILA [facility] [address] [facility] [address] [place], [place]. [address] Report Submission Date: Mar 30, 2019 8:35:55 AM CDT Patient Study Name: GABBY SHEETS Date: Mar 30, 2019 8:09:10 AM CDT Modality Type: DX Gender: F Description: CHEST 2VIEW : 84 Institution: [facility] Physician: TIFFANY DAVILA Examination: PA and lateral chest. History: Evaluate lung arora. Comparison exam: 29 August 2017 Findings: PA and lateral views of the chest demonstrates a normal cardiac and mediastinal silhouette. No focal infiltrate. No blunting of the costophrenic margins. Osseous structures are appropriate for age. Impression: No acute pulmonary process. Electronically signed on Mar 30, 2019 8:35:55 AM CDT by: Frandy ODELL
[2019-03-30 08:50] LABS: eGFR (Non-African) > 60
[2019-03-30 09:33] VITALS: BP 128/82
[2019-03-30 11:49] LABS: APPEARANCE,URINE CLEAR (CLEAR); COLOR,URINE AMBER (YELLOW); OCCULT BLOOD,URINE 2+ (NEGATIVE); PH URINE 5.5 (5.0 - 8.0)
[2019-03-30 11:50] LABS: CANNABINOIDS NON NEGATIVE ng/mL (< 50); METHYLENEDIOXYMETHAMPHETAMINE NEGATIVE ng/mL (<500)
[2019-03-30 11:50] LABS: URINE HCG NEGATIVE (NEGATIVE)
== END 2019-03-30 09:28 | disposition home or self-care (01) ==
LOC: ED 07:37
DX: J44.9 Chronic obstructive pulmonary disease, unspecified (principal)
CPT/HCPCS: 71046; 80053; 80377; 81002; 81025; 85025; 94640; 99284; G0481

== ENCOUNTER 2019-05-11 06:29 | Emergency (ER) | payer OTHER ==
--- NOTE | 2019-05-11 07:18 | ED Physician Documentation ---
Nausea/Vomiting/Diarrhea - HISTORIAN Historian: patient - HPI Stated Complaint: "I have had nausea and vomiting for the last 4 days" Chief Complaint: Nausea,Vomiting,Diarrhea Additional Information: 38 year old female presents to the ER with c/o N/V/D- she states that symptoms started on Monday (6 days ago). She did receive the flu shot this season. She was recently treated by PCP for sinus infection with Keflex and Zofran for the nausea. Lungs are coarse with exp. wheezing. (hx of COPD- she is trying to quit). She states that she will need a work excuse because she has not been to work all week- she called in this morning and they told her she would need an excuse. Onset: days ago Duration: waxing, waning Timing: gradual onset Context: denies: out of country travel, bad food Severity: mild - Associated Symptoms Vomiting: mild, bilious Diarrhea: mild, watery Abdominal Pain: none - ROS CONST: recent illness (sinus infection) CVS/RESP: cough GI/: none EYES/ENT: none MS/SKIN/LYMPH: denies: joint pain NEURO/PSYCH: none - PAST HX Past History: other (COPD) Surgeries/Procedures: hysterectomy Immunizations: influenza Allergies/Adverse Reactions: Allergies Allergy/AdvReac Type Severity Reaction Status Date / Time naproxen Allergy Verified 05/11/19 06:58 tramadol Allergy Verified 05/11/19 06:58 Home Medications: Ambulatory Orders Medication Instructions Recorded Ergocalciferol (Vitamin D2) 1,000 unit PO DAILY 01/05/17 [Vitamin D] Potassium Chloride [Klor-Con M20] 40 meq PO DAILY 01/05/17 oxyCODONE HCL/ACETAMINOPHEN 1 tab PO QID 01/05/17 [Percocet 5/325] Beclomethasone Dipropionate [Qvar 2 puff INH BID 03/30/19 Redihaler] Citalopram Hydrobromide [Celexa] 20 mg PO BID 03/30/19 Furosemide [Lasix] 40 mg PO BID 03/30/19 Methylprednisolone [Medrol] 4 mg PO DAILY #21 tab.ds.pk 05/11/19 Ondansetron HCl Rapdis [Zofran Odt] 4 mg PO Q6H #15 tab.rapdis 05/11/19 Pregabalin [Lyrica] 300 mg PO BID 05/11/19 Varenicline Tartrate [Chantix] 1 mg PO DAILY 05/11/19 - SOCIAL HX Smoking History: less than 1 pack/day Alcohol Use: none Drug Use: none - FAMILY HX Family History: none - VITAL SIGNS Vital Signs: Vital Signs Temp Pulse Resp BP Pulse Ox 97.4 F L 86 16 153/89 98 05/11/19 06:29 05/11/19 06:29 05/11/19 06:29 05/11/19 06:29 05/11/19 06:29 - REVIEWED ASSESSMENTS Nursing Assessment Reviewed: Yes Vitals Reviewed: Yes ED Results Lab/Radiology - Lab Results Lab Results: Lab Results 05/11/19 05/11/19 07:14 07:14 WBC 8.30 K/ul K/ul (4.00-12.00) RBC 4.20 M/ul M/ul (3.90-5.20) Hgb 13.2 g/dL g/dL (11.5-16.0) Hct 38.6 % % (34.5-46.5) MCV 92.0 fl fl (80.0-100.0) MCH 31.4 pg pg (28.0-34.0) MCHC 34.2 g/dL g/dL (30.0-36.0) RDW 11.8 % % (11.3-14.3) Plt Count 228 K/mm3 K/mm3 (130-400) Neut % (Auto) 50.2 % % (39.0-79.0) Lymph % (Auto) 37.3 % % (16.0-50.0) [place] % (Auto) 9.2 % % (0.0-11.0) Eos % (Auto) 2.7 % % (0.0-6.8) Baso % (Auto) 0.6 % % (0.0-1.5) Neut # (Auto) 4.2 # k/uL # k/uL (1.4-7.7) Lymph # (Auto) 3.1 # k/uL # k/uL (0.6-4.0) [place] # (Auto) 0.8 # k/uL # k/uL (0.0-0.9) Eos # (Auto) 0.2 # k/uL # k/uL (0.0-0.6) Baso # (Auto) 0.1 # k/uL # k/uL (0.0-0.5) Sodium 140 mmol/L mmol/L (137-145) Potassium 3.8 mmol/L mmol/L (3.5-5.1) Chloride 108 mmol/L H mmol/L (98-107) Carbon Dioxide 23 mmol/L mmol/L (22-30) Anion Gap 12.8 BUN 15 mg/dL mg/dL (7-17) Creatinine 0.58 mg/dL mg/dL (0.52-1.04) Estimated Creat Clear 222 Est GFR ( Amer) > 60 (60 - ) Est GFR (Non-Af Amer) > 60 (60 - ) Glucose 99 mg/dL mg/dL (74-106) Calcium 8.5 mg/dL mg/dL (8.4-10.2) Total Bilirubin 0.2 mg/dL mg/dL (0.2-1.3) AST 42 U/L U/L (15-46) ALT 15 U/L U/L (0-35) Alkaline Phosphatase 58 U/L U/L (38-126) Total Protein 7.0 g/dL g/dL (6.3-8.2) Albumin 3.7 g/dL g/dL (3.5-5.0) - Orders Orders: ED Orders Category Date Time Status CBC/PLATELET/DIFF Routine Lab 05/11/19 07:14 Completed CMP Routine Lab 05/11/19 07:14 Completed INFLUENZA A&B Stat Lab 05/11/19 Uncollected URINALYSIS Routine Lab 05/11/19 07:14 Ordered Ondansetron HCl Rapdis [Zofran Odt] Med 05/11/19 07:14 Discontinued 4 mg PO NOW ONE Nausea Physical Exam - EXAM General Appearance: no acute distress, alert EENT: eye inspection normal, ENT inspection normal, pharynx normal, no signs of dehydration, RODNEY Neck: normal inspection, supple Respiratory: wheezes, rhonchi CVS: reg rate & rhythm, heart sounds normal, equal pulses Abdomen: non-tender Skin: warm/dry, normal color Extremities: non-tender, normal range of motion, no evidence of injury Neuro/Psych: oriented X3, CN's nml as tested, motor nml, sensation nml, mood/affect nml, cognition normal Discharge Clincal Impression: Nausea, COPD exacerbation Referrals: Emelia Zamarripa [Primary Care Provider] - 2 Days Additional Instructions: Take Zofran 4 mg by mouth every 6 hours as needed for nausea Increase water intake Follow up with PCP next week for re-evaluation Condition: Good Disposition: 01 HOME, SELF-CARE Decision to Admit: NO Decision Time: 08:05
[2019-05-11] MEDS: ONDANSETRON HCL 4 MG TAB.RAPDIS PO ONE (07:23)
[2019-05-11 07:29] LABS: BASOPHILS % 0.6 % (0.0-1.5); NEUTROPHILS # 4.2 # k/uL (1.4-7.7)
[2019-05-11 07:42] LABS: eGFR (Non-African) > 60
[2019-05-11 08:52] VITALS: BP 144/93
[2019-05-12 07:22] LABS: OCCULT BLOOD,URINE 1+ (NEGATIVE); UROBILINOGEN URINE 0.2 Eu (0.2-1.0)
== END 2019-05-11 08:10 | disposition home or self-care (01) ==
LOC: ED 06:29
DX: J44.1 Chronic obstructive pulmonary disease with (acute) exacerbation (principal)
CPT/HCPCS: 80053; 81002; 85025; 87400; 99283; 99284; A9270